=== PATIENT | male | born 1930 | race African-American/Black ===

== ENCOUNTER → 2016-10-08 | Outpatient (CLI) | payer OTHER ==
[2016-04-05 15:38] VITALS: BP 159/88
[~2016-10-08] MED LIST: BENA40TA2 PO; CONTRAST GIVEN MC PRN; DILT180C4 PO; GUAI473L75 PO; HYDR-2867 PO; IOHEXOL 240 MG/ML 50ML VIAL. PO ONE; IOHEXOL 300 MG/ML 75 ML VIAL IV ONE; TAMS0.4C2 PO
--- NOTE | 2016-10-08 15:38 | RAD ---
Indication abnormal weight loss. Assess for occult tumor. Axial images through the chest, abdomen and pelvis were obtained. Both oral and IV contrast were administered. 75 cc of Omnipaque 300 was administered intravenously. Imaging through the chest was performed during the arterial phase. Imaging through the abdomen and pelvis was performed during the portal venous. No prior CT imaging is available. CT chest: Findings The thoracic aorta is unremarkable. There is some coronary artery calcification. There is no significant hilar or mediastinal adenopathy. No dominant soft tissue mass is seen in either lung. There is calcified granuloma in the left lower lobe. No acute finding is apparent in the chest CT abdomen and pelvis: Findings There are several low-density masses in the liver the largest measuring approximately 16 mm. These may reflect cysts although they're not completely characterized on this study. Other etiologies, including metastatic disease are not excluded. A definite significant finding in the liver is not seen. The gallbladder appears grossly normal. The spleen appears normal. No there is a low-density mass in the head of the pancreas measuring approximately 4 cm in greatest dimension. It is suspect for a primary neoplasm. The body and tail of the pancreas appear unremarkable. The adrenal glands and kidneys appear unremarkable. There is no significant central or retroperitoneal adenopathy seen in the abdomen. In the pelvis the prostate is markedly enlarged. There is some associated distention of the urinary bladder. IMPRESSION: Unremarkable CT chest. 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 Endoscopic ultrasound should be considered for additional evaluation. Hepatic masses may reflect cysts. Other etiologies including metastatic disease are not excluded Markedly enlarged prostate. PQRS Compliance Statement: One or more of the following individualized dose reduction techniques were utilized for this examination: 1. Automated exposure control 2. Adjustment of the mA and/or kV according to patient size 3. Use of iterative reconstruction technique
== END | disposition home or self-care (01) ==
LOC: CT 14:33
PROVIDERS: ATTEND Family Medicine
DX: J84.10 Pulmonary fibrosis, unspecified (principal)
CPT/HCPCS: 71260; 74160; Q9966; Q9967

== ENCOUNTER 2016-11-15 13:30 | Observation (INO) | payer OTHER ==
[~2016-11-15] VITALS: Ht 175.3 cm; Wt 83.2 kg
[~2016-11-15 13:30] MED LIST changes: -CONTRAST GIVEN MC PRN; -IOHEXOL 240 MG/ML 50ML VIAL. PO ONE; -IOHEXOL 300 MG/ML 75 ML VIAL IV ONE
[2016-11-15] MEDS ORDERED: IV NORMAL SALINE 1000ML BAG 1,000 ML IV SCH (14:11)
--- NOTE | 2016-11-15 14:22 | EKG ---
[facility] [address] [place] [address] Test Date: 2016-11-15 Test Time: 13:47:00 Pat Name: LISET RIVAS Department: Room: Gender: M [employer]aker: SHALA : 1930 Requested By: Vy BRAUN Order Number: [id number] Reading MD: Benito Borjas Measurements Intervals [place] Rate: 88 P: 41 FL: 212 QRS: -36 QRSD: 72 T: 81 QT: 362 QTc: 441 Interpretive Statements SINUS RHYTHM VENTRICULAR PREMATURE COMPLEX(ES) ATRIAL PREMATURE COMPLEX(ES) PROLONGED [place] INTERVAL ABNORMAL LEFT AXIS DEVIATION QRS(T) CONTOUR ABNORMALITY CONSISTENT WITH INFERIOR INFARCT PROBABLY OLD T ABNORMALITY IN HIGH LATERAL LEADS ABNORMAL ECG Electronically Signed On 11-17-2016 15:03:50 CDT by Benito Borjas
[2016-11-15 14:26] LABS: BASO % 0 % (0-3); EOS % 3 % (0-3); HEMATOCRIT 39.8 % (39.0-53.0); HEMOGLOBIN 12.6 g/dL (13.0-17.5); LYMPH # 1.7 x10^3/uL (1.0-4.8); LYMPH % 25 % (24-48); MEAN CORPUSCULAR HEMOGLOBIN 25 pg (25-35); MEAN CORPUSCULAR HGB CONC 32 g/dL (31-37); MEAN CORPUSCULAR VOLUME 79 fL (79-100); MONO % 8 % (0-9); NEUT % 64 % (31-73); PLATELET COUNT 213 x10^3/uL (140-400); RED BLOOD COUNT 5.04 x10^6/uL (4.30-5.70); RED CELL DISTRIBUTION WIDTH 28.1 % (11.5-14.5); WHITE BLOOD COUNT 6.5 x10^3/uL (4.0-11.0)
--- NOTE | 2016-11-15 14:27 | PHYS DOC ---
Past Medical History Past Medical History: Anemia, Hypertension, Other Additional Past Medical Histor: BPH, [place],ENLARGED PROSTATE Past Surgical History: No Surgical History Alcohol Use: Heavy Drug Use: None Adult General Chief Complaint Chief Complaint: WEAKNESS/GENERALIZED HPI HPI Patient is a 86 year old male who presents with complaints of generalized weakness and just not feeling right. Patient has a history of anemia, BPH and hypertension. Patient states he took his medications today. Patient wasn't able to ambulate in the ED and in no distress. Patient denies any sick contacts, falls, recent illnesses, fevers or chills. No changes in medications recently. Review of Systems Review of Systems Constitutional: Denies fever or chills [] Eyes: Denies change in visual acuity, redness, or eye pain [] HENT: Denies nasal congestion or sore throat, no neck pain Respiratory: Denies cough or shortness of breath [] Cardiovascular: No chest pain GI: Denies abdominal pain, nausea, vomiting, bloody stools or diarrhea [] : Denies dysuria or hematuria [] Musculoskeletal: Denies back pain or joint pain [] Integument: Denies rash or skin lesions [] Neurologic: Denies headache, focal weakness or sensory changes. Generalized weakness Endocrine: Denies polyuria or polydipsia [] Current Medications Current Medications Current Medications Medications (Trade) Dose Ordered Sig/Leta Start Time Stop Time Status Last Admin Dose Admin Aspirin (Children'S Aspirin) 324 mg 1X ONCE 11/15/16 15:00 11/15/16 15:01 DC 11/15/16 15:36 324 MG Sodium Chloride 1,000 ml @ 100 mls/hr Q10H 11/15/16 14:11 11/16/16 00:10 11/15/16 14:11 100 MLS/HR Allergies Allergies Allergies Coded Allergies Type Severity Reaction Last Updated Verified No Known Drug Allergies 08/12/13 No Physical Exam Physical Exam Constitutional: Well developed, well nourished, no acute distress, non-toxic appearance. [] HENT: Normocephalic, atraumatic, bilateral external ears normal, oropharynx moist, no oral exudates, nose normal. [] Eyes: PERRLA, EOMI, conjunctiva normal, no discharge. [] Neck: Normal range of motion, no tenderness, supple, no stridor. [] Cardiovascular:Heart rate regular rhythm, no murmur [] Lungs & Thorax: Bilateral breath sounds clear to auscultation [] Abdomen: Bowel sounds normal, soft, no tenderness, no masses, no pulsatile masses. [] Skin: Warm, dry, no erythema, no rash. [] Back: No tenderness, no CVA tenderness. [] Extremities: No tenderness, no cyanosis, no clubbing, ROM intact, no edema. [] Neurologic: Alert and oriented X 3, normal motor function, normal sensory function, no focal deficits noted. [] Psychologic: Affect normal, judgement normal, mood normal. [] Current Patient Data Vital Signs Vital Signs Date Time Temp Pulse Resp B/P (MAP) Pulse Ox O2 Delivery O2 Flow Rate FiO2 11/15/16 15:08 68 17 131/72 (91) 96 Room Air 11/15/16 13:43 98.6 98.6 Lab Values Laboratory Tests Test 11/15/16 13:45 White Blood Count 6.5 x10^3/uL (4.0-11.0) Red Blood Count 5.04 x10^6/uL (4.30-5.70) Hemoglobin 12.6 g/dL (13.0-17.5) L Hematocrit 39.8 % (39.0-53.0) Mean Corpuscular Volume 79 fL (79-100) Mean Corpuscular Hemoglobin 25 pg (25-35) Mean Corpuscular Hemoglobin Concent 32 g/dL (31-37) Red Cell Distribution Width 28.1 % (11.5-14.5) H Platelet Count 213 x10^3/uL (140-400) Neutrophils (%) (Auto) 64 % (31-73) Lymphocytes (%) (Auto) 25 % (24-48) Monocytes (%) (Auto) 8 % (0-9) Eosinophils (%) (Auto) 3 % (0-3) Basophils (%) (Auto) 0 % (0-3) Neutrophils # (Auto) 4.2 x10^3uL (1.8-7.7) Lymphocytes # (Auto) 1.7 x10^3/uL (1.0-4.8) Monocytes # (Auto) 0.5 x10^3/uL (0.0-1.1) Eosinophils # (Auto) 0.2 x10^3/uL (0.0-0.7) Basophils # (Auto) 0.0 x10^3/uL (0.0-0.2) Platelet Estimate Adequate (ADEQUATE) Anisocytosis Marked Microcytosis Slight Target Cells Few Ovalocytes Mod Schistocytes Few Sodium Level 141 mmol/L (136-145) Potassium Level 3.3 mmol/L (3.5-5.1) L Chloride Level 107 mmol/L (98-107) Carbon Dioxide Level 26 mmol/L (21-32) Anion Gap 8 (6-14) Blood Urea Nitrogen 9 mg/dL (8-26) Creatinine 1.1 mg/dL (0.7-1.3) Estimated GFR (Cockcroft-Gault) 77.0 Glucose Level 121 mg/dL (70-99) H Calcium Level 8.8 mg/dL (8.5-10.1) Total Bilirubin 0.2 mg/dL (0.2-1.0) Direct Bilirubin 0.1 mg/dL (0.0-0.2) Aspartate Amino Transferase (AST) 19 U/L (15-37) Alanine Aminotransferase (ALT) 23 U/L (16-63) Alkaline Phosphatase 61 U/L (46-116) Troponin I Quantitative 0.056 ng/mL (0.000-0.055) Total Protein 7.3 g/dL (6.4-8.2) Albumin 3.3 g/dL (3.4-5.0) L Thyroid Stimulating Hormone (TSH) 2.085 uIU/mL (0.358-3.74) Laboratory Tests 11/15/16 13:45 Laboratory Tests 11/15/16 13:45 EKG EKG Sinus rhythm, 88, no STEMI, EP interpretation at 1349 [] Radiology/Procedures Radiology/Procedures Comparison: 04/05/2016 chest radiograph. Findings: Cardiac and mediastinal silhouettes are within normal limits. Calcified atheromatous disease of the thoracic aorta. No pleural effusion, pneumothorax or focal consolidation. Impression: No acute cardiopulmonary abnormality.[] Course & Med Decision Making Course & Med Decision Making Pertinent Labs and Imaging studies reviewed. (See chart for details) 1530 pt in nad, still no pain [] Dragon Disclaimer Dragon Disclaimer This electronic medical record was generated, in whole or in part, using a voice recognition dictation system. Departure Departure Disposition: 09 ADMITTED INPATIENT Admitting Physician: Sandra Castro Condition: STABLE Referrals: YOVANI HUNTER MD (PCP) Vy BRAUN MD Nov 15, 2016 14:27
[2016-11-15 14:40] LABS: CALCIUM 8.8 mg/dL (8.5-10.1); CREATININE 1.1 mg/dL (0.7-1.3); POTASSIUM 3.3 mmol/L (3.5-5.1)
--- NOTE | 2016-11-15 14:40 | RAD ---
AP chest radiograph 11/07/2016 Clinical indication: Weakness, malaise. Comparison: 04/05/2016 chest radiograph. Findings: Cardiac and mediastinal silhouettes are within normal limits. Calcified atheromatous disease of the thoracic aorta. No pleural effusion, pneumothorax or focal consolidation. Impression: No acute cardiopulmonary abnormality.
[2016-11-15 14:45] LABS: ALBUMIN 3.3 g/dL (3.4-5.0); DIRECT BILIRUBIN 0.1 mg/dL (0.0-0.2); TOTAL BILIRUBIN 0.2 mg/dL (0.2-1.0); TOTAL PROTEIN 7.3 g/dL (6.4-8.2)
[2016-11-15] MEDS ORDERED: ASPIRIN CHEWABLE 81 MG TABLET. PO ONE (15:00)
[2016-11-15 15:39] LABS: BILIRUBIN,URINE NEGATIVE (NEG); GLUCOSE,URINE NEGATIVE (NEG); NITRITE,URINE NEGATIVE (NEG); PROTEIN,URINE NEGATIVE (NEG-TRACE); UROBILINOGEN,URINE 0.2 mg/dL (0.2 mg/dL)
[2016-11-15 15:48] LABS: ANISOCYTOSIS MARKED; MICROCYTOSIS SLIGHT; OVALOCYTES MOD; PLT ESTIMATE ADEQUATE (ADEQUATE); SCHISTOCYTES FEW; TARGET CELLS FEW
[2016-11-15 15:59] LABS: BACTERIA,URINE 0 /HPF (0-FEW); RBC,URINE 0 /HPF (0-2); SQUAMOUS EPITHELIAL CELL,UR FEW /LPF
[2016-11-15] MEDS ORDERED: ONDANSETRON PF 4 MG/2 ML VIAL. IV PRN (16:00)
[2016-11-15 19:48] VITALS: BP 158/72
[2016-11-15] MEDS ORDERED: FERR220S4 PO (21:07)
[2016-11-15 22:19] VITALS: BP 162/84
[2016-11-16 03:53] VITALS: BP 141/80
[2016-11-16 04:55] LABS: BASO % 1 % (0-3); EOS % 5 % (0-3); HEMATOCRIT 37.9 % (39.0-53.0); HEMOGLOBIN 11.9 g/dL (13.0-17.5); LYMPH # 1.8 x10^3/uL (1.0-4.8); LYMPH % 30 % (24-48); MEAN CORPUSCULAR HEMOGLOBIN 25 pg (25-35); MEAN CORPUSCULAR HGB CONC 31 g/dL (31-37); MEAN CORPUSCULAR VOLUME 80 fL (79-100); MONO % 8 % (0-9); NEUT % 57 % (31-73); PLATELET COUNT 186 x10^3/uL (140-400); RED BLOOD COUNT 4.76 x10^6/uL (4.30-5.70); RED CELL DISTRIBUTION WIDTH 27.5 % (11.5-14.5)
[2016-11-16 05:10] LABS: CALCIUM 8.9 mg/dL (8.5-10.1); CREATININE 0.9 mg/dL (0.7-1.3); POTASSIUM 3.1 mmol/L (3.5-5.1)
[2016-11-16 07:00] VITALS: BP 154/73
--- NOTE | 2016-11-16 08:41 | PDOC1 ---
History and Physical Date of Admission Date of Admission 11/15/16 Identification/Chief Complaint Chief Complaint weakness Problems: Source Source: Chart review, Patient History of Present Illness History of Present Illness Patient is a 86 year old male who presents with complaints of generalized weakness and just not feeling right. Patient has a history of anemia, BPH and hypertension. Patient states he took his medications today. Patient wasn't able to ambulate in the ED and in no distress. Patient denies any sick contacts, falls, recent illnesses, fevers or chills. No changes in medications recently. Past Medical History Cardiovascular: HTN Heme/Onc: Anemia NOS Renal/: Benign prostatic enlarg. Family History Family History: Hypertension Social History Smoke: Quit ALCOHOL: rare Drugs: None Current Medications Current Medications Current Medications Medications (Trade) Dose Ordered Sig/Leta Start Time Stop Time Status Last Admin Dose Admin Aspirin (Children'S Aspirin) 324 mg 1X ONCE 11/15/16 15:00 11/15/16 15:01 DC 11/15/16 15:36 324 MG Ondansetron HCl (Zofran) 4 mg PRN Q8HRS PRN 11/15/16 16:00 11/16/16 15:59 Sodium Chloride 1,000 ml @ 100 mls/hr Q10H 11/15/16 14:11 11/16/16 00:10 DC 11/15/16 14:11 100 MLS/HR Allergies Allergies Allergies Coded Allergies Type Severity Reaction Last Updated Verified No Known Drug Allergies 08/12/13 No ROS Review of System CONSTITUTIONAL: No fever or chills EYES: No recent changes SKIN: No rash or itching CARDIOVASCULAR: No chest pain, syncope, palpitations, or edema RESPIRATORY: No SOB or cough GASTROINTESTINAL: No nausea, vomiting + abdominal pain and heart Burn , reflux symptoms NEUROLOGICAL: No headaches or weakness ENDOCRINE: No cold or heat intolerance GENITOURINARY: No urgency MUSCULOSKELETAL: No back pain or joint pain LYMPHATICS: No enlarged lymph nodes PSYCHIATRIC: No anxiety or depression Physical Exam Physical Exam GEN.: No apparent distress. Alert and oriented. HEENT: Head is normocephalic, atraumatic NECK: Supple. LUNGS: Clear to auscultation. HEART: RRR, S1, S2 present. Peripheral pulses intact ABDOMEN: Soft, mild epigastric tenderness. Positive bowel sounds. EXTREMITIES: Without any cyanosis. NEUROLOGIC: Normal speech, normal tone PSYCHIATRIC: Normal affect, normal mood. SKIN: No ulcerations Vitals Vitals Vital Signs Date Time Temp Pulse Resp B/P (MAP) Pulse Ox O2 Delivery O2 Flow Rate FiO2 11/16/16 08:00 Room Air 11/16/16 03:53 98.0 51 16 141/80 (100) 96 98.0 Labs Labs Laboratory Tests Test 11/15/16 13:45 11/15/16 15:30 11/15/16 22:30 11/16/16 04:00 White Blood Count 6.5 x10^3/uL (4.0-11.0) 6.0 x10^3/uL (4.0-11.0) Red Blood Count 5.04 x10^6/uL (4.30-5.70) 4.76 x10^6/uL (4.30-5.70) Hemoglobin 12.6 g/dL (13.0-17.5) 11.9 g/dL (13.0-17.5) Hematocrit 39.8 % (39.0-53.0) 37.9 % (39.0-53.0) Mean Corpuscular Volume 79 fL (79-100) 80 fL (79-100) Mean Corpuscular Hemoglobin 25 pg (25-35) 25 pg (25-35) Mean Corpuscular Hemoglobin Concent 32 g/dL (31-37) 31 g/dL (31-37) Red Cell Distribution Width 28.1 % (11.5-14.5) 27.5 % (11.5-14.5) Platelet Count 213 x10^3/uL (140-400) 186 x10^3/uL (140-400) Neutrophils (%) (Auto) 64 % (31-73) 57 % (31-73) Lymphocytes (%) (Auto) 25 % (24-48) 30 % (24-48) Monocytes (%) (Auto) 8 % (0-9) 8 % (0-9) Eosinophils (%) (Auto) 3 % (0-3) 5 % (0-3) Basophils (%) (Auto) 0 % (0-3) 1 % (0-3) Neutrophils # (Auto) 4.2 x10^3uL (1.8-7.7) 3.4 x10^3uL (1.8-7.7) Lymphocytes # (Auto) 1.7 x10^3/uL (1.0-4.8) 1.8 x10^3/uL (1.0-4.8) Monocytes # (Auto) 0.5 x10^3/uL (0.0-1.1) 0.5 x10^3/uL (0.0-1.1) Eosinophils # (Auto) 0.2 x10^3/uL (0.0-0.7) 0.3 x10^3/uL (0.0-0.7) Basophils # (Auto) 0.0 x10^3/uL (0.0-0.2) 0.0 x10^3/uL (0.0-0.2) Platelet Estimate Adequate (ADEQUATE) Anisocytosis Marked Microcytosis Slight Target Cells Few Ovalocytes Mod Schistocytes Few Sodium Level 141 mmol/L (136-145) Potassium Level 3.3 mmol/L (3.5-5.1) Chloride Level 107 mmol/L (98-107) Carbon Dioxide Level 26 mmol/L (21-32) Anion Gap 8 (6-14) Blood Urea Nitrogen 9 mg/dL (8-26) Creatinine 1.1 mg/dL (0.7-1.3) Estimated GFR (Cockcroft-Gault) 77.0 Glucose Level 121 mg/dL (70-99) Calcium Level 8.8 mg/dL (8.5-10.1) Total Bilirubin 0.2 mg/dL (0.2-1.0) Direct Bilirubin 0.1 mg/dL (0.0-0.2) Aspartate Amino Transf (AST/SGOT) 19 U/L (15-37) Alanine Aminotransferase (ALT/SGPT) 23 U/L (16-63) Alkaline Phosphatase 61 U/L (46-116) Troponin I Quantitative 0.056 ng/mL (0.000-0.055) 0.066 ng/mL (0.000-0.055) 0.070 ng/mL (0.000-0.055) Total Protein 7.3 g/dL (6.4-8.2) Albumin 3.3 g/dL (3.4-5.0) Thyroid Stimulating Hormone (TSH) 2.085 uIU/mL (0.358-3.74) Urine Collection Type Unknown Urine Color Yellow Urine Clarity Clear Urine pH 6.0 Urine Specific [place] 1.010 Urine Protein Negative mg/dL (NEG-TRACE) Urine Glucose (UA) Negative mg/dL (NEG) Urine Ketones (Stick) Negative mg/dL (NEG) Urine Blood Negative (NEG) Urine Nitrite Negative (NEG) Urine Bilirubin Negative (NEG) Urine Urobilinogen Dipstick 0.2 mg/dL (0.2 mg/dL) Urine Leukocyte Esterase Negative (NEG) Urine RBC 0 /HPF (0-2) Urine WBC 1-4 /HPF (0-4) Urine Squamous Epithelial Cells Few /LPF Urine Bacteria 0 /HPF (0-FEW) Urine Mucus Slight /LPF Test 11/16/16 04:30 Sodium Level 142 mmol/L (136-145) Potassium Level 3.1 mmol/L (3.5-5.1) Chloride Level 106 mmol/L (98-107) Carbon Dioxide Level 25 mmol/L (21-32) Anion Gap 11 (6-14) Blood Urea Nitrogen 8 mg/dL (8-26) Creatinine 0.9 mg/dL (0.7-1.3) Estimated GFR (Cockcroft-Gault) 97.0 Glucose Level 89 mg/dL (70-99) Calcium Level 8.9 mg/dL (8.5-10.1) Laboratory Tests Test 11/15/16 13:45 11/15/16 15:30 11/15/16 22:30 11/16/16 04:00 White Blood Count 6.5 x10^3/uL (4.0-11.0) 6.0 x10^3/uL (4.0-11.0) Red Blood Count 5.04 x10^6/uL (4.30-5.70) 4.76 x10^6/uL (4.30-5.70) Hemoglobin 12.6 g/dL (13.0-17.5) 11.9 g/dL (13.0-17.5) Hematocrit 39.8 % (39.0-53.0) 37.9 % (39.0-53.0) Mean Corpuscular Volume 79 fL (79-100) 80 fL (79-100) Mean Corpuscular Hemoglobin 25 pg (25-35) 25 pg (25-35) Mean Corpuscular Hemoglobin Concent 32 g/dL (31-37) 31 g/dL (31-37) Red Cell Distribution Width 28.1 % (11.5-14.5) 27.5 % (11.5-14.5) Platelet Count 213 x10^3/uL (140-400) 186 x10^3/uL (140-400) Neutrophils (%) (Auto) 64 % (31-73) 57 % (31-73) Lymphocytes (%) (Auto) 25 % (24-48) 30 % (24-48) Monocytes (%) (Auto) 8 % (0-9) 8 % (0-9) Eosinophils (%) (Auto) 3 % (0-3) 5 % (0-3) Basophils (%) (Auto) 0 % (0-3) 1 % (0-3) Neutrophils # (Auto) 4.2 x10^3uL (1.8-7.7) 3.4 x10^3uL (1.8-7.7) Lymphocytes # (Auto) 1.7 x10^3/uL (1.0-4.8) 1.8 x10^3/uL (1.0-4.8) Monocytes # (Auto) 0.5 x10^3/uL (0.0-1.1) 0.5 x10^3/uL (0.0-1.1) Eosinophils # (Auto) 0.2 x10^3/uL (0.0-0.7) 0.3 x10^3/uL (0.0-0.7) Basophils # (Auto) 0.0 x10^3/uL (0.0-0.2) 0.0 x10^3/uL (0.0-0.2) Platelet Estimate Adequate (ADEQUATE) Anisocytosis Marked Microcytosis Slight Target Cells Few Ovalocytes Mod Schistocytes Few Sodium Level 141 mmol/L (136-145) Potassium Level 3.3 mmol/L (3.5-5.1) Chloride Level 107 mmol/L (98-107) Carbon Dioxide Level 26 mmol/L (21-32) Anion Gap 8 (6-14) Blood Urea Nitrogen 9 mg/dL (8-26) Creatinine 1.1 mg/dL (0.7-1.3) Estimated GFR (Cockcroft-Gault) 77.0 Glucose Level 121 mg/dL (70-99) Calcium Level 8.8 mg/dL (8.5-10.1) Total Bilirubin 0.2 mg/dL (0.2-1.0) Direct Bilirubin 0.1 mg/dL (0.0-0.2) Aspartate Amino Transf (AST/SGOT) 19 U/L (15-37) Alanine Aminotransferase (ALT/SGPT) 23 U/L (16-63) Alkaline Phosphatase 61 U/L (46-116) Troponin I Quantitative 0.056 ng/mL (0.000-0.055) 0.066 ng/mL (0.000-0.055) 0.070 ng/mL (0.000-0.055) Total Protein 7.3 g/dL (6.4-8.2) Albumin 3.3 g/dL (3.4-5.0) Thyroid Stimulating Hormone (TSH) 2.085 uIU/mL (0.358-3.74) Urine Collection Type Unknown Urine Color Yellow Urine Clarity Clear Urine pH 6.0 Urine Specific [place] 1.010 Urine Protein Negative mg/dL (NEG-TRACE) Urine Glucose (UA) Negative mg/dL (NEG) Urine Ketones (Stick) Negative mg/dL (NEG) Urine Blood Negative (NEG) Urine Nitrite Negative (NEG) Urine Bilirubin Negative (NEG) Urine Urobilinogen Dipstick 0.2 mg/dL (0.2 mg/dL) Urine Leukocyte Esterase Negative (NEG) Urine RBC 0 /HPF (0-2) Urine WBC 1-4 /HPF (0-4) Urine Squamous Epithelial Cells Few /LPF Urine Bacteria 0 /HPF (0-FEW) Urine Mucus Slight /LPF Test 11/16/16 04:30 Sodium Level 142 mmol/L (136-145) Potassium Level 3.1 mmol/L (3.5-5.1) Chloride Level 106 mmol/L (98-107) Carbon Dioxide Level 25 mmol/L (21-32) Anion Gap 11 (6-14) Blood Urea Nitrogen 8 mg/dL (8-26) Creatinine 0.9 mg/dL (0.7-1.3) Estimated GFR (Cockcroft-Gault) 97.0 Glucose Level 89 mg/dL (70-99) Calcium Level 8.9 mg/dL (8.5-10.1) VTE Prophylaxis Ordered VTE Prophylaxis Devices: Yes VTE Pharmacological Prophylaxi: No Assessment/Plan Assessment/Plan 1- elevated troponin likely not specific 2- GERD symptoms start PPI 3-HTN 4-check lipids MARY PIPER MD Nov 16, 2016 08:41
[2016-11-16] MEDS ORDERED: TAMSULOSIN 0.4 MG CAP.ER.24H. PO SCH (09:00)
[2016-11-16] MEDS ORDERED: POTASSIUM CHLORIDE 20 MEQ TABLET.ER. PO ONE (09:00)
[2016-11-16] MEDS ORDERED: FERROUS SULFATE 325 MG TABLET. PO SCH (09:00)
--- NOTE | 2016-11-16 10:23 | PDOC2 ---
JERRY BRAVO ADVERTISING DIRECTOR 11/16/16 1023: CARDIAC CONSULT DATE OF CONSULT Date of Consult DATE: 11/16/16 TIME: 10:16 REASON FOR CONSULT Reason for Consult: elevated trop HISTORY OF PRESENT ILLNESS HISTORY OF PRESENT ILLNESS Mr Avila is an 86 year old male who presents with complaints of weakness and having difficulty walking. He reports "feeling like i drank a bunch of wine". He was apparently unable to walk in the ED. He was noted to have a mildly increased troponin so consult was called. He denies any chest discomfort, dyspnea, congestive symptoms. He denies any palpitations, syncope. He reports 15 pound weight loss over the last 3 months that was unintentional for which he was sent for a CT. He says he has not yet received results but was called to see a new "specialist" to discuss the report. He can not remember the doctors name. He is currently feeling much better and wants to "go to [facility] for a burger". 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 CURRENT MEDICATIONS CURRENT MEDICATIONS Current Medications Medications (Trade) Dose Ordered Sig/Leta Route PRN Reason Start Time Stop Time Status Last Admin Dose Admin Sodium Chloride 1,000 ml @ 100 mls/hr Q10H IV 11/15/16 14:11 11/16/16 00:10 DC 11/15/16 14:11 Aspirin (Children'S Aspirin) 324 mg 1X ONCE PO 11/15/16 15:00 11/15/16 15:01 DC 11/15/16 15:36 Potassium Chloride (Klor-Con) 40 meq 1X ONCE PO 11/16/16 09:00 11/16/16 09:01 DC 11/16/16 09:14 Hydralazine HCl (Apresoline) 50 mg TID PO 11/16/16 09:00 11/16/16 09:15 Tamsulosin HCl (Flomax) 0.4 mg BID PO 11/16/16 09:00 11/16/16 09:14 Diltiazem HCl (Cardizem 24hr Cd) 240 mg DAILY PO 11/16/16 09:00 11/16/16 09:14 Ferrous Sulfate (Feosol) 325 mg BIDWMEALS PO 11/16/16 09:00 11/16/16 09:15 ALLERGIES ALLERGIES: Coded Allergies: No Known Drug Allergies (Unverified , 08/12/13) ROS Review of System as per HPI with addition below General: YES: Malaise HEENT: YES: Hearing change, Other (uses hearing aids) Gastrointestinal: Yes Constipation (secondary to iron suppliment) Musculoskeletal: Yes Gait Disturbance, Yes Joint Stiffness, Yes Other (back pain) VITALS VITALS Vital Signs Date Time Temp Pulse Resp B/P (MAP) Pulse Ox O2 Delivery O2 Flow Rate FiO2 11/16/16 09:15 78 154/73 11/16/16 08:00 Room Air 11/16/16 07:00 98.0 18 98 98.0 LABS Lab: Laboratory Tests Test 11/15/16 13:45 11/15/16 15:30 11/15/16 22:30 11/16/16 04:00 White Blood Count 6.5 x10^3/uL (4.0-11.0) 6.0 x10^3/uL (4.0-11.0) Red Blood Count 5.04 x10^6/uL (4.30-5.70) 4.76 x10^6/uL (4.30-5.70) Hemoglobin 12.6 g/dL (13.0-17.5) 11.9 g/dL (13.0-17.5) Hematocrit 39.8 % (39.0-53.0) 37.9 % (39.0-53.0) Mean Corpuscular Volume 79 fL (79-100) 80 fL (79-100) Mean Corpuscular Hemoglobin 25 pg (25-35) 25 pg (25-35) Mean Corpuscular Hemoglobin Concent 32 g/dL (31-37) 31 g/dL (31-37) Red Cell Distribution Width 28.1 % (11.5-14.5) 27.5 % (11.5-14.5) Platelet Count 213 x10^3/uL (140-400) 186 x10^3/uL (140-400) Neutrophils (%) (Auto) 64 % (31-73) 57 % (31-73) Lymphocytes (%) (Auto) 25 % (24-48) 30 % (24-48) Monocytes (%) (Auto) 8 % (0-9) 8 % (0-9) Eosinophils (%) (Auto) 3 % (0-3) 5 % (0-3) Basophils (%) (Auto) 0 % (0-3) 1 % (0-3) Neutrophils # (Auto) 4.2 x10^3uL (1.8-7.7) 3.4 x10^3uL (1.8-7.7) Lymphocytes # (Auto) 1.7 x10^3/uL (1.0-4.8) 1.8 x10^3/uL (1.0-4.8) Monocytes # (Auto) 0.5 x10^3/uL (0.0-1.1) 0.5 x10^3/uL (0.0-1.1) Eosinophils # (Auto) 0.2 x10^3/uL (0.0-0.7) 0.3 x10^3/uL (0.0-0.7) Basophils # (Auto) 0.0 x10^3/uL (0.0-0.2) 0.0 x10^3/uL (0.0-0.2) Platelet Estimate Adequate (ADEQUATE) Anisocytosis Marked Microcytosis Slight Target Cells Few Ovalocytes Mod Schistocytes Few Sodium Level 141 mmol/L (136-145) Potassium Level 3.3 mmol/L (3.5-5.1) Chloride Level 107 mmol/L (98-107) Carbon Dioxide Level 26 mmol/L (21-32) Anion Gap 8 (6-14) Blood Urea Nitrogen 9 mg/dL (8-26) Creatinine 1.1 mg/dL (0.7-1.3) Estimated GFR (Cockcroft-Gault) 77.0 Glucose Level 121 mg/dL (70-99) Calcium Level 8.8 mg/dL (8.5-10.1) Total Bilirubin 0.2 mg/dL (0.2-1.0) Direct Bilirubin 0.1 mg/dL (0.0-0.2) Aspartate Amino Transf (AST/SGOT) 19 U/L (15-37) Alanine Aminotransferase (ALT/SGPT) 23 U/L (16-63) Alkaline Phosphatase 61 U/L (46-116) Troponin I Quantitative 0.056 ng/mL (0.000-0.055) 0.066 ng/mL (0.000-0.055) 0.070 ng/mL (0.000-0.055) Total Protein 7.3 g/dL (6.4-8.2) Albumin 3.3 g/dL (3.4-5.0) Thyroid Stimulating Hormone (TSH) 2.085 uIU/mL (0.358-3.74) Urine Collection Type Unknown Urine Color Yellow Urine Clarity Clear Urine pH 6.0 Urine Specific [place] 1.010 Urine Protein Negative mg/dL (NEG-TRACE) Urine Glucose (UA) Negative mg/dL (NEG) Urine Ketones (Stick) Negative mg/dL (NEG) Urine Blood Negative (NEG) Urine Nitrite Negative (NEG) Urine Bilirubin Negative (NEG) Urine Urobilinogen Dipstick 0.2 mg/dL (0.2 mg/dL) Urine Leukocyte Esterase Negative (NEG) Urine RBC 0 /HPF (0-2) Urine WBC 1-4 /HPF (0-4) Urine Squamous Epithelial Cells Few /LPF Urine Bacteria 0 /HPF (0-FEW) Urine Mucus Slight /LPF Test 11/16/16 04:30 Sodium Level 142 mmol/L (136-145) Potassium Level 3.1 mmol/L (3.5-5.1) Chloride Level 106 mmol/L (98-107) Carbon Dioxide Level 25 mmol/L (21-32) Anion Gap 11 (6-14) Blood Urea Nitrogen 8 mg/dL (8-26) Creatinine 0.9 mg/dL (0.7-1.3) Estimated GFR (Cockcroft-Gault) 97.0 Glucose Level 89 mg/dL (70-99) Calcium Level 8.9 mg/dL (8.5-10.1) IMAGES IMAGES CXR - Impression: No acute cardiopulmonary abnormality. CT 09/2016 - IMPRESSION: Unremarkable CT chest. 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 Endoscopic ultrasound should be considered for additional evaluation. Hepatic masses may reflect cysts. Other etiologies including metastatic disease are not excluded Markedly enlarged prostate. EKG EKG sinus rhythm, left axis, premature ventricular and atrial contractions, non specific t abn. no acute ischemic changes. ASSESSMENT/PLAN ASSESSMENT/PLAN 1. mild troponin elevation 2. hypertension 3. hypokalemia 4. pancreatic mass suspicious of primary neoplasm Minimal trop elevation without acute EKG changes or anginal symptoms in the setting of possible pancreatic cancer. Suggest echo for LV function, aspirin, check lipids and manage medically at this time. Replace low potassium and management of pancreatic mass as per PCP. Problems: YUE MANSFIELD MD 11/16/16 1324: CARDIAC CONSULT ALLERGIES ALLERGIES: Coded Allergies: No Known Drug Allergies (Unverified , 08/12/13) ASSESSMENT/PLAN ASSESSMENT/PLAN Patient seen and examined. Agree with SHIFT LEADER's assessment and plan. Troponin level slightly elevated but patient denied any chest pain and EKG did not show any acute changes. Doubt ACS. Plan for 2-D echocardiogram to rule out wall motion abnormalities - this could however be done as an outpatient since clinical suspicion low. Continue workup for pancreatic mass per primary team. Thank you for your consultation. Problems: JERRY BRAVO APRN Nov 16, 2016 10:23 YUE MANSFIELD MD Nov 16, 2016 13:24
[2016-11-16 10:44] LABS: CHOLESTEROL/HDL RATIO 4.1
[2016-11-16 11:00] VITALS: BP 133/67
[2016-11-16 15:00] VITALS: BP 124/64
[2016-11-16] MEDS ORDERED: PANT40TA3 PO (15:19)
[2016-11-16] MEDS ORDERED: PANTOPRAZOLE 40 MG TABLET.DR. PO SCH (22:50)
== END 2016-11-16 17:00 | disposition home or self-care (01) ==
LOC: ER 13:30 → 2 NORTH 16:13
PROVIDERS: ADMIT Internal Medicine; ATTEND Internal Medicine
DX: R79.89 Other specified abnormal findings of blood chemistry (principal); K21.9 Gastro-esophageal reflux disease without esophagitis; I10 Essential (primary) hypertension; E87.6 Hypokalemia; F10.20 Alcohol dependence, uncomplicated; K86.9 Disease of pancreas, unspecified; N40.0 Benign prostatic hyperplasia without lower urinary tract symptoms; Z87.891 Personal history of nicotine dependence
CPT/HCPCS: 36415; 71010; 80048; 80061; 80076; 81001; 84443; 84484; 85007; 85027; 93005; 96360; 96361; 99285; G0378; J7030; G0379

== ENCOUNTER → 2017-01-10 | Outpatient (CLI) | payer OTHER ==
[~2017-01-10] MED LIST changes: +FERR220S4 PO; +PANT40TA3 PO; +REGADENOSON 0.4 MG/5 ML DISP.SYRIN. IV ONE
--- NOTE | 2017-01-10 10:06 | CARD ---
APPROVED REPORT EXAM: Two-dimensional and M-mode echocardiogram with Doppler and color Doppler. Other Information Quality : GoodHR: 93bpm Rhythm : Arrhythmia-nonspecific INDICATION Elevated troponin RISK FACTORS Hypertension 2D DIMENSIONS RVDd3.3 (2.9-3.5cm)Left Atrium(2D)4.0 (1.6-4.0cm) IVSd1.2 (0.7-1.1cm)Aortic Root(2D)2.6 (2.0-3.7cm) LVDd6.0 (3.9-5.9cm)LVOT Diameter2.3 (1.8-2.4cm) PWd1.2 (0.7-1.1cm)LVDs4.8 (2.5-4.0cm) FS (%) 18.7 %SV67.3 ml M-Mode DIMENSIONS LVDd5.59 (4.0-5.6cm)FS (%) 21 % LVDs4.41 (2.0-3.8cm)ESV(Teich)88.1 ml Aortic Valve AoV Peak Sam.153.2cm/sAoV VTI31.6cm AO Peak GR.9.4mmHgLVOT Peak Sam.111.2cm/s AO Mean GR.5mmHgAVA (VMAX)2.93cm2 Mitral Valve MV E Laakdyaf916.5cm/sMV A Velocity0.6cm/s E/A Zlxfu035.5 Pulmonary Valve PV Peak Rsodoygm359.6cm/s Tricuspid Valve TR P. Ifgqzneg852hl/sTR Peak Gr.73mmHg LEFT VENTRICLE The left ventricle is normal size. There is mild concentric left ventricular hypertrophy. Left ventri louisa systolic function is mildly impaired. The Ejection Fraction is 45%. There is mild global hypokine sis of the left ventricle. Tissue Doppler imaging reveals mild left ventricular diastolic dysfunction . No left ventricle thrombus noted on this study. RIGHT VENTRICLE The right ventricle is normal size. There is normal right ventricular wall thickness. The right ventr icular systolic function is normal. ATRIA The left atrium is mildly dilated. The right atrium size is normal. The interatrial septum is intact with no evidence for an atrial septal defect or patent foramen ovale as noted on 2-D or Doppler imagi ng. AORTIC VALVE The aortic valve is mildly sclerotic. The aortic valve is trileaflet. Doppler and Color Flow revealed no significant aortic regurgitation. There is no significant aortic valvular stenosis. MITRAL VALVE The mitral valve leaflets are thickened and calcified. There is no evidence of mitral valve prolapse. There is no mitral valve stenosis. Doppler and Color Flow revealed mild to moderate mitral regurgita tion. The MR jet is posteriorly directed. TRICUSPID VALVE Doppler and Color Flow revealed moderate tricuspid regurgitation. The pulmonary artery systolic press ure is estimated at 76 mmHg. There is severe pulmonary hypertension. PULMONIC VALVE The pulmonary valve is not well visualized but appears to open adequately. Doppler and Color Flow rev ealed mild pulmonic valvular regurgitation. There is no pulmonic valvular stenosis by spectral Dopple r. GREAT VESSELS The aortic root is normal in size. The ascending aorta is normal in size. The pulmonary artery is nor mal. The IVC is normal in size and collapses >50% with inspiration. PERICARDIAL EFFUSION There is no evidence of significant pericardial effusion. Critical Notification Critical Value: No <Conclusion> Left ventricle systolic function is mildly impaired. The Ejection Fraction is 45%. Mild to moderate mitral regurgitation. Moderate tricuspid regurgitation. The pulmonary artery systolic pressure is estimated at 76 mmHg. There is severe pulmonary hypertension. There is no evidence of significant pericardial effusion.
--- NOTE | 2017-01-10 15:38 | RAD ---
APPROVED REPORT Test Type: Pharmacological Stress Nurse/Tech: Cherri Arboleda R.N. Test Indications: elevated trop. Cardiac History: htn Medications: See Electronic Medical Record Medical History: See Electronic Medical Record Resting ECG: Sr w/ frequent pac's and pvc's Resting Heart Rate: 71 bpm Resting Blood Pressure: 132/74mmHg Pretest Chest Pain: No chest pain Nurse/Tech Notes S1S2, lungs CTA Consent: The procedure was explained to the patient in lay terms. Informed consent was witnessed. Milton eout was entered into [employer]. History and Stress Test performed by RT Tania (R) (N) Pharm. Details Pharmacologic stress testing was performed using 0.4mg per 5ml of regadenoson given intravenously ove r 7-10 seconds. Stress Symptoms Dyspnea, POST EXERCISE Reason for Termination: Infusion complete Max HR: 120 bpm Max Blood Pressure: 141/67mmHg Blood Pressure response to exercise: Normal blood pressure response during stress. Heart Rate response to exercise: wnl Chest Pain: No. Arrhythmia: Yes. increased frequency of pvc's ST Change: No. INTERPRETATION Stress EKG Conclusion: Baseline EKG showed sinus rhythm with PAC's. No ischemic changes at peak stre ss. No arrhythmias. Imaging Protocol IMAGE PROTOCOL: Rest Tc-99m/stress Tc-99m 1 day Rest: Stress: Viability: Radiopharm.Tc99m [id number] Sestamibi Dose12.5mCi 33.6mCi Duration 17min. 12min. Img Date 01/10/2017 01/10/2017 Inj-Img Xiwn63crm. 60min. Rest Admin Site:IV - Left AntecubitalAdministrator:BETY Landry, ARRT (R)(N) Stress Admin Site: IV - Left AntecubitalAdministrator: RT Tania (R)(N) STRESS DATA End Diast. Vol.189.0mlAv. Heart Rate80.0bpm End Syst. Vol.72.0mlCO Index BSA0.0L/min Myocardial Strp510.0gEject. Uxkjsrjw64.0% Stress Rates Pk. Fill Rate3.01EDV/secLVtime Pk. Fill 112.90msec Pk. Empty Rate3.04ESV/secLVtime Pk. Dqsyf906.22msec / Pk. Fill1.79EDV/sec Stress Scores Regional WT0.00Summed WT1.00 Regional WM0.00Summed WM6.00 LV Perfusion Scintigraphic images showed diaphragmatic attenuation artifact without any other fixed or reversible defects. Wall Motion Normal left ventricle systolic function with ejection fraction calculated at 62%. LV Perf. Quant 17 Seg. SSS4.00 17 Seg. SRS0.00 17 Seg. SDS4.00 Stress Defect Extent (% LAD)0.00Rest Defect Extent (% LAD)0.00Rev. Defect Extent (% LAD)0.00 Stress Defect Extent (% LCX) 15.00Rest Defect Extent (% LCX)12.50Rev. Defect Extent (% LCX)15.00 Stress Defect Extent (% RCA)4.40Rest Defect Extent (% RCA)0.00Rev. Defect Extent (% RCA)3.30 Stress Defect Extent (% CHACE)3.50Rest Defect Extent (% CHACE)2.20Rev. Defect Extent (% CHACE)3.30 Conclusion 1. Regadenoson cardioisotope stress test showed diaphragmatic attenuation artifact without any eviden ce of ischemia or infarct. 2. Normal left ventricular systolic function with ejection fraction calculated at 62%. 3. Low risk for cardiac events.
== END | disposition home or self-care (01) ==
LOC: NM 08:12
PROVIDERS: ATTEND Internal Medicine Cardiovascular Disease
DX: I08.1 Rheumatic disorders of both mitral and tricuspid valves (principal); I10 Essential (primary) hypertension; I49.5 Sick sinus syndrome; I27.2 Other secondary pulmonary hypertension; R74.8 Abnormal levels of other serum enzymes
CPT/HCPCS: 78452; 93017; 93306; 96374; 96375; 96376; A9500; J2785

== ENCOUNTER 2017-11-10 14:35 | Emergency (ER) | payer OTHER ==
[2017-11-10 15:22] LABS: ADD MAN DIFF? NO
[2017-11-10 15:24] LABS: BASO % 0 % (0-3); EOS # 0.2 x10^3/uL (0.0-0.7); EOS % 3 % (0-3); HEMATOCRIT 36.5 % (39.0-53.0); HEMOGLOBIN 11.8 g/dL (13.0-17.5); LYMPH # 1.6 x10^3/uL (1.0-4.8); LYMPH % 25 % (24-48); MEAN CORPUSCULAR HEMOGLOBIN 24 pg (25-35); MEAN CORPUSCULAR HGB CONC 32 g/dL (31-37); MEAN CORPUSCULAR VOLUME 76 fL (79-100); MONO # 0.6 x10^3/uL (0.0-1.1); MONO % 10 % (0-9); NEUT % 63 % (31-73); PLATELET COUNT 255 x10^3/uL (140-400); RED BLOOD COUNT 4.82 x10^6/uL (4.30-5.70); RED CELL DISTRIBUTION WIDTH 25.6 % (11.5-14.5); WHITE BLOOD COUNT 6.3 x10^3/uL (4.0-11.0)
[2017-11-10 15:40] LABS: ANION GAP 8 (6-14); BLOOD UREA NITROGEN 16 mg/dL (8-26); BUN/CREATININE RATIO 16 (6-20); CARBON DIOXIDE 26 mmol/L (21-32); CHLORIDE 100 mmol/L (98-107); GFR 85.7; GLUCOSE 104 mg/dL (70-99); POTASSIUM 4.4 mmol/L (3.5-5.1); SODIUM 134 mmol/L (136-145)
[2017-11-10 15:46] LABS: ALBUMIN 3.4 g/dL (3.4-5.0); ALBUMIN/GLOBULIN RATIO 0.9 (1.0-1.7); ALK PHOS 63 U/L (46-116); ALT (SGPT) 23 U/L (16-63); AST (SGOT) 22 U/L (15-37); TOTAL BILIRUBIN 0.2 mg/dL (0.2-1.0); TOTAL PROTEIN 7.2 g/dL (6.4-8.2)
[2017-11-10 15:48] LABS: TROPONINI 0.048 ng/mL (0.000-0.055)
[2017-11-10 16:52] LABS: ANISOCYTOSIS MARKED; HYPOCHROMIA SLIGHT; OVALOCYTES MOD; PLT ESTIMATE ADEQUATE (ADEQUATE); SCHISTOCYTES FEW
[2017-11-10] MEDS ORDERED: PROPOFOL 10 MG/ML (20ML) VIAL. IV (17:30)
[2017-11-10] MEDS ORDERED: SUCCINYLCHOLINE 200 MG/10 ML VIAL. IV (17:30)
[2017-11-10] MEDS ORDERED: ETOMIDATE 20 MG/10 ML VIAL. IV (17:30)
[2017-11-10 17:49] LABS: BILIRUBIN,URINE NEGATIVE (NEG); CLARITY,URINE CLEAR; COLOR,URINE YELLOW; GLUCOSE,URINE NEGATIVE (NEG); NITRITE,URINE NEGATIVE (NEG); PROTEIN,URINE NEGATIVE (NEG-TRACE); UROBILINOGEN,URINE 0.2 mg/dL (0.2 mg/dL)
[2017-11-10 17:59] LABS: BACTERIA,URINE 0 /HPF (0-FEW); RBC,URINE 0 /HPF (0-2); SQUAMOUS EPITHELIAL CELL,UR OCC /LPF; WBC,URINE 0 /HPF (0-4)
== END 2017-11-10 18:36 | disposition home or self-care (01) ==
LOC: ER 14:35
DX: R53.1 Weakness (principal); M79.604 Pain in right leg; M79.605 Pain in left leg; I25.2 Old myocardial infarction; I10 Essential (primary) hypertension; N40.0 Benign prostatic hyperplasia without lower urinary tract symptoms
CPT/HCPCS: 36415; 80053; 81001; 84484; 85025; 93005; 99285-25

== ENCOUNTER → 2017-11-11 | Outpatient (CLI) | payer OTHER ==
[2017-11-11] MEDS: IOHEXOL 300 MG/ML 100ML VIAL. IV (11:20)
[2017-11-11] MEDS: IOHEXOL 240 MG/ML 50ML VIAL. PO (11:21)
== END | disposition home or self-care (01) ==
LOC: CT 09:53
DX: K57.30 Diverticulosis of large intestine without perforation or abscess without bleeding (principal); M12.852 Other specific arthropathies, not elsewhere classified, left hip; M12.851 Other specific arthropathies, not elsewhere classified, right hip; N40.0 Benign prostatic hyperplasia without lower urinary tract symptoms; K86.89 Other specified diseases of pancreas; J84.10 Pulmonary fibrosis, unspecified; I11.0 Hypertensive heart disease with heart failure; I50.31 Acute diastolic (congestive) heart failure; E78.5 Hyperlipidemia, unspecified; D50.9 Iron deficiency anemia, unspecified; E87.6 Hypokalemia; I25.10 Atherosclerotic heart disease of native coronary artery without angina pectoris; K21.9 Gastro-esophageal reflux disease without esophagitis; Z87.891 Personal history of nicotine dependence
CPT/HCPCS: 74177; Q9966; Q9967

== ENCOUNTER 2018-04-11 10:31 | Emergency (ER) | payer OTHER ==
[~2018-04-11] VITALS: Ht 177.8 cm; Wt 82.1 kg
[~2018-04-11 10:31] MED LIST changes: +ALPR0.5T6 PO; +AMLO10TA4 PO; +ASPI-630 PO; -BENA40TA2 PO; +BENA40TA3 PO; +CARV6.25 PO; +DILT240C2 PO; +ERGO500027 PO; +FURO-68 PO; +IRON1TAB69 PO; +LISI10TA2 PO; +POTA20TA82 PO; -REGADENOSON 0.4 MG/5 ML DISP.SYRIN. IV ONE
[2018-04-11] MEDS ORDERED: ONDANSETRON PF 4 MG/2 ML VIAL. IV ONE (10:45)
[2018-04-11 11:05] LABS: BASO # 0.1 x10^3/uL (0.0-0.2); BASO % 1 % (0-3); EOS # 0.1 x10^3/uL (0.0-0.7); EOS % 1 % (0-3); HEMATOCRIT 23.6 % (39.0-53.0); HEMOGLOBIN 7.8 g/dL (13.0-17.5); LYMPH # 0.9 x10^3/uL (1.0-4.8); LYMPH % 12 % (24-48); MEAN CORPUSCULAR HEMOGLOBIN 26 pg (25-35); MEAN CORPUSCULAR HGB CONC 33 g/dL (31-37); MEAN CORPUSCULAR VOLUME 79 fL (79-100); MONO # 0.5 x10^3/uL (0.0-1.1); MONO % 7 % (0-9); NEUT # 5.8 x10^3uL (1.8-7.7); NEUT % 80 % (31-73); PLATELET COUNT 352 x10^3/uL (140-400); RED BLOOD COUNT 2.97 x10^6/uL (4.30-5.70); RED CELL DISTRIBUTION WIDTH 14.7 % (11.5-14.5); WHITE BLOOD COUNT 7.3 x10^3/uL (4.0-11.0)
[2018-04-11 11:22] LABS: CALCIUM 9.6 mg/dL (8.5-10.1); CREATININE 1.3 mg/dL (0.7-1.3); GFR 63.3; POTASSIUM 4.2 mmol/L (3.5-5.1)
[2018-04-11 11:29] LABS: DIRECT BILIRUBIN 0.1 mg/dL (0.0-0.2); TOTAL BILIRUBIN 0.2 mg/dL (0.2-1.0); TOTAL PROTEIN 7.5 g/dL (6.4-8.2)
[2018-04-11] MEDS ORDERED: IV NORMAL SALINE 1000ML BAG 1,000 ML IV ONE (11:45)
--- NOTE | 2018-04-11 12:03 | PHYS DOC ---
Past Medical History Past Medical History: Hypertension, [place], Other Additional Past Medical Histor: BPH, [place],ENLARGED PROSTATE Past Surgical History: No Surgical History Alcohol Use: None Drug Use: None Adult General Chief Complaint Chief Complaint: NAUSEA/VOMITING/DIARRHA HPI HPI Patient is a 87 year old male who presents with nausea and vomiting. Patient has been ill over the last 48 hours. He primarily complains of nausea and vomiting. He does not have abdominal pain. Patient states he has been too nauseated to keep any food or fluid down over the last 24 hours. This includes his blood pressure medication. No chest pain or shortness of breath. No dyspnea with exertion. No orthopnea. No ill contacts. The patient does live at home by himself. Review of Systems Review of Systems Constitutional: Denies fever or chills Eyes: Denies change in visual acuity HENT: Denies nasal congestion Respiratory: Denies cough or shortness of breath Cardiovascular: No additional information not addressed in HPI GI: Denies abdominal pain : Denies urinary symptoms Musculoskeletal: Denies back pain Integument: Denies rash or skin lesions Neurologic: Denies headache Endocrine: Denies polyuria All other systems were reviewed and found to be within normal limits, except as documented in this note. Current Medications Current Medications Current Medications Medications (Trade) Dose Ordered Sig/Leta Start Time Stop Time Status Last Admin Dose Admin Ondansetron HCl (Zofran) 4 mg 1X ONCE 04/11/18 10:45 04/11/18 10:46 DC 04/11/18 12:38 4 MG Sodium Chloride 1,000 ml @ 1,000 mls/hr 1X ONCE 04/11/18 11:45 04/11/18 12:44 DC 04/11/18 12:38 1,000 MLS/HR Allergies Allergies Allergies Coded Allergies Type Severity Reaction Last Updated Verified No Known Drug Allergies 08/12/13 No Physical Exam Physical Exam Constitutional: Well developed, well nourished, no acute distress, non-toxic appearance HENT: Normocephalic, atraumatic, bilateral external ears normal, oropharynx moist Eyes: PERRLA, EOMI, conjunctiva normal Neck: Normal range of motion, no tenderness Cardiovascular:Heart rate regular rhythm, no murmur Lungs & Thorax: Bilateral breath sounds clear to auscultation Abdomen: Bowel sounds normal, soft, no tenderness, no masses, no pulsatile masses. Skin: Warm, dry, no erythema, no rash Extremities: No tenderness, no edema Neurologic: Alert and oriented X 3 Psychologic: Affect normal Current Patient Data Vital Signs Vital Signs Date Time Temp Pulse Resp B/P (MAP) Pulse Ox O2 Delivery O2 Flow Rate FiO2 04/11/18 15:41 76 20 136/65 (88) 99 Room Air 04/11/18 10:33 98.1 98.1 Lab Values Laboratory Tests Test 04/11/18 10:52 04/11/18 13:15 04/11/18 14:30 White Blood Count 7.3 x10^3/uL (4.0-11.0) Red Blood Count 2.97 x10^6/uL (4.30-5.70) L Hemoglobin 7.8 g/dL (13.0-17.5) L Hematocrit 23.6 % (39.0-53.0) L Mean Corpuscular Volume 79 fL (79-100) Mean Corpuscular Hemoglobin 26 pg (25-35) Mean Corpuscular Hemoglobin Concent 33 g/dL (31-37) Red Cell Distribution Width 14.7 % (11.5-14.5) H Platelet Count 352 x10^3/uL (140-400) Neutrophils (%) (Auto) 80 % (31-73) H Lymphocytes (%) (Auto) 12 % (24-48) L Monocytes (%) (Auto) 7 % (0-9) Eosinophils (%) (Auto) 1 % (0-3) Basophils (%) (Auto) 1 % (0-3) Neutrophils # (Auto) 5.8 x10^3uL (1.8-7.7) Lymphocytes # (Auto) 0.9 x10^3/uL (1.0-4.8) L Monocytes # (Auto) 0.5 x10^3/uL (0.0-1.1) Eosinophils # (Auto) 0.1 x10^3/uL (0.0-0.7) Basophils # (Auto) 0.1 x10^3/uL (0.0-0.2) Prothrombin Time 15.6 SEC (11.7-14.0) H Prothrombin Time INR 1.3 (0.8-1.1) H PTT 29 SEC (24-38) Sodium Level 133 mmol/L (136-145) L Potassium Level 4.2 mmol/L (3.5-5.1) Chloride Level 98 mmol/L (98-107) Carbon Dioxide Level 26 mmol/L (21-32) Anion Gap 9 (6-14) Blood Urea Nitrogen 16 mg/dL (8-26) Creatinine 1.3 mg/dL (0.7-1.3) Estimated GFR (Cockcroft-Gault) 63.3 Glucose Level 105 mg/dL (70-99) H Calcium Level 9.6 mg/dL (8.5-10.1) Total Bilirubin 0.2 mg/dL (0.2-1.0) Direct Bilirubin 0.1 mg/dL (0.0-0.2) Aspartate Amino Transferase (AST) 23 U/L (15-37) Alanine Aminotransferase (ALT) 23 U/L (16-63) Alkaline Phosphatase 54 U/L (46-116) Troponin I Quantitative 0.039 ng/mL (0.000-0.055) Total Protein 7.5 g/dL (6.4-8.2) Albumin 3.0 g/dL (3.4-5.0) L Lipase 164 U/L (73-393) Urine Collection Type Unknown Urine Color Yellow Urine Clarity Clear Urine pH 6.5 Urine Specific [place] 1.015 Urine Protein Negative mg/dL (NEG-TRACE) Urine Glucose (UA) Negative mg/dL (NEG) Urine Ketones (Stick) Negative mg/dL (NEG) Urine Blood Negative (NEG) Urine Nitrite Negative (NEG) Urine Bilirubin Negative (NEG) Urine Urobilinogen Dipstick 1.0 mg/dL (0.2 mg/dL) Urine Leukocyte Esterase Negative (NEG) Urine RBC 0 /HPF (0-2) Urine WBC Occ /HPF (0-4) Urine Squamous Epithelial Cells Occ /LPF Urine Bacteria 0 /HPF (0-FEW) Urine Hyaline Casts Moderate /HPF Urine Mucus Mod /LPF Stool Occult Blood Positive (NEG) Laboratory Tests 04/11/18 10:52 Laboratory Tests 04/11/18 10:52 EKG EKG No STEMI Interpretation Time: 11:50 Radiology/Procedures Radiology/Procedures [] Course & Med Decision Making Course & Med Decision Making Pertinent Labs and Imaging studies reviewed. (See chart for details) 11:30: Patient is seen and examined. No acute distress. Basic labs ordered. IVF's. EKG is non-acute. Will screen for influenza. 16:20: All results are reviewed. The patient had a normal EKG. His troponin was not elevated. He was noted to have a hemoglobin of 7.8 but he does endorse a prior history of anemia which she takes iron for. He is followed by his primary care physician for this and already has a follow-up appointment scheduled in a couple of weeks. Patient does endorse dark colored stools but only since he started taking Pepto-Bismol in the last 2 days. Guaiac of stool was positive for blood which could represent false positive or could represent slow GI bleeding. The patient's anemia is noted to be normocytic. Patient does not want to be admitted to the hospital. He has normal vital signs. He is tolerating food and fluids by mouth. He did not have abdominal pain and his abdominal exam is benign. Patient is discharged home. He is advised to come back to the ER for any lightheadedness or dizziness or chest pain or any other new symptoms. Dragon Disclaimer Dragon Disclaimer This electronic medical record was generated, in whole or in part, using a voice recognition dictation system. Departure Departure Disposition: 01 HOME, SELF-CARE Condition: GOOD Referrals: MARBIN RICHARDSON (PCP) AMADEO MELVIN DO Apr 11, 2018 12:03
--- NOTE | 2018-04-11 12:22 | EKG ---
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
[2018-04-11 13:32] LABS: PROTHROMBIN TIME PATIENT 15.6 SEC (11.7-14.0)
[2018-04-11 13:32] LABS: BILIRUBIN,URINE NEGATIVE (NEG); CLARITY,URINE CLEAR; COLOR,URINE YELLOW; NITRITE,URINE NEGATIVE (NEG); PH,URINE 6.5; PROTEIN,URINE NEGATIVE (NEG-TRACE)
[2018-04-11 13:51] LABS: BACTERIA,URINE 0 /HPF (0-FEW); RBC,URINE 0 /HPF (0-2); SQUAMOUS EPITHELIAL CELL,UR OCC /LPF; WBC,URINE OCC /HPF (0-4)
[2018-04-11 13:52] LABS: HYALINE CASTS, URINE MODERATE /HPF
[2018-04-11 14:52] LABS: FECAL OB PT POSITIVE (NEG)
[2018-04-11 16:11] VITALS: BP 135/65
== END 2018-04-11 16:45 | disposition home or self-care (01) ==
LOC: ER 10:31
DX: R11.2 Nausea with vomiting, unspecified (principal); D64.9 Anemia, unspecified; I10 Essential (primary) hypertension; I25.2 Old myocardial infarction; N40.0 Benign prostatic hyperplasia without lower urinary tract symptoms
CPT/HCPCS: 36415; 80048; 80076; 81001; 82274; 83690; 84484; 85025; 85610; 85730; 93005; 96361; 96374; 99284; J2405; J7030

== ENCOUNTER → 2018-04-16 | Outpatient (CLI) | payer OTHER ==
[2018-04-11 16:11] VITALS: BP 135/65
[~2018-04-16] MED LIST changes: +IOHEXOL 240 MG/ML 50ML VIAL. PO ONE; +IOHEXOL 300 MG/ML 100ML VIAL. IV ONE
--- NOTE | 2018-04-16 12:51 | RAD ---
Examination: CT ABD PELV W/ORAL IV CONTRAST History: PANCREATIC MASS/PANCREAS PROTOCOL INJ 75ML OMNI 300 PREV SENT Comparison/Correlation: 10/12/2017 CT abdomen and pelvis with IV and oral contrast Findings: Axial images of the abdomen and pelvis were obtained following IV contrast. Sagittal and coronal reformatted images were provided. Calcified granulomas involve the posterior left basilar aspect. Left hepatic dome lesion is present and stable measuring 0.8 cm diameter. Right hepatic lobe lesions are present with hypoenhancement noted. These are again seen in segment 6 and 7. The segment 7 lesion is subcapsular. The segment 7 lesion is unchanged measuring 1.8 cm. The segment 6 lesion is smaller in size and similar to prior exam. No new hepatic lesions are present. The stomach is very distended with debris and contrast. Marked circumferential thickening of the gastric pyloric region is present in the interval. Low-attenuation of the gastric pyloric alexander present in the interval.. There is an enlarged gastrohepatic ligament lymph node measuring 2.5 cm diameter necrotic center. This is notably increased in size since the prior exam. Additional lymph node is present along the superior margin of the pancreatic head and this measures 1.9 cm diameter by 1.7 cm diameter. It has increased in size notably since the prior exam. There is a lymph node lateral to the gastric pylorus measuring 1.4 cm diameter which has low attenuation, necrotic appearance. This is increased in the interval. Low-attenuation pancreatic head lesion measuring 2.5 cm x 2.1 cm this is similar in size to the prior exam. Adrenal glands are normal. Kidneys are normal. No extraluminal gas. Moderate quantity of stool in the colon. Diverticulosis of the colon is present. Urinary bladder is mostly decompressed. Marked prostatomegaly is present. Bony structures are unremarkable for the patient's age. Impression: Interval increase in size of hepatic ligament, peripancreatic, and other lymph nodes. Necrotic appearance of the lymph nodes identified. Pancreatic head low-attenuation mass lesion is unchanged. Marked prostatomegaly. Marked distention of the stomach. This appears to be due to marked circumferential thickening of the gastric pyloric wall. Subtle surrounding stranding of the gastric pylorus region and wall edema noted. Correlate with underlying radiation treatment or other etiology for underlying inflammatory process. Electronically signed by: Romeo Phillip MD (04/16/2018 12:47 PM) [id number]
== END | disposition home or self-care (01) ==
LOC: CT 08:53
PROVIDERS: ATTEND Physician Assistant Surgical
DX: K86.9 Disease of pancreas, unspecified (principal); K57.30 Diverticulosis of large intestine without perforation or abscess without bleeding; K31.89 Other diseases of stomach and duodenum
CPT/HCPCS: 74177; Q9966; Q9967